=== PATIENT | female | born 1960 | race Two or more races ===

== ENCOUNTER 2017-03-25 00:02 | Emergency (ER) | payer OTHER ==
[~2017-03-25] VITALS: Ht 149.9 cm; Wt 52.6 kg
[2017-03-25 00:06] VITALS: BP 165/93
[2017-03-25 00:32] LABS: APPEARANCE,URINE CLEAR (CLEAR); BILIRUBIN,URINE NEGATIVE (NEGATIVE); BLOOD, URINE 3+ Ery/uL (NEGATIVE); KETONES,URINE NEGATIVE (NEGATIVE); LEUKOCYTE ESTERASE ,URINE 1+ (NEGATIVE); NITRITE, URINE NEGATIVE (NEGATIVE); PROTEIN,URINE 1+ mg/dl (NEGATIVE); UGLUCOSE NEGATIVE (NEGATIVE); UROBILINOGEN,URINE 0.2 EU/dL (0.2)
[2017-03-25 00:40] LABS: COLOR,URINE LIGHT PINK (YELLOW)
[2017-03-25 00:51] LABS: BACTERIA,URINE None seen /HPF (None Seen); SQUAMOUS EPITHELIAL CELL,UR Few /HPF (None Seen); WBC,URINE 21-50 /HPF (0-3)
== END 2017-03-25 01:50 | disposition home or self-care (01) ==
LOC: ER 00:07
DX: N39.0 Urinary tract infection, site not specified (principal); Z88.1 Allergy status to other antibiotic agents; Z88.8 Allergy status to other drugs, medicaments and biological substances
CPT/HCPCS: 81001; 87086; 99284; A4606; Z7610; 81000-TC